=== PATIENT | male | born 1985 | race Hispanic/Latino ===

== ENCOUNTER 2024-06-25 17:30 | Emergency (ER) | payer SELFPAY ==
[2024-06-25 17:45] VITALS: BP 154/93; PULSE 107; RESP 18; TEMP 37.1; O2SAT 96
--- NOTE | 2024-06-25 17:45 | ED_ITS ---
HPI - General Adult General Stated complaint: High B/P Time Seen by Provider: 06/25/24 17:49 Source: patient Mode of arrival: ambulatory Limitations: language barrier (Skin [employer]itter used) History of Present Illness HPI narrative: 38-year-old male presents with concern for high blood pressure. Reports he took his blood pressure at [employer] today and it was high. He reports he sometimes feels briefly dizzy when he stands up. He denies headache, vision changes, chest pain, shortness of breath MD complaint: High blood pressure Review of Systems Review of Systems: CONSTITUTIONAL: Denies malaise, chills, sweats, or fever. EYES: Denies visual changes CARDIOVASCULAR: Denies chest pain, palpitations, or edema. RESPIRATORY: Denies cough or dyspnea. NEUROLOGIC: Denies numbness, weakness, or headache. All systems reviewed & are unremarkable except as noted in HPI and below PMFSH Comments At time of signature, agree with nursing past medical, surgical, social and family history. There is no relevant family history pertinent to the presenting complaint Exam Narrative: GENERAL: Well-appearing, well-nourished, and in no acute distress. HEAD: Normocephalic, atraumatic. EYES: PERRLA, sclera clear, and EOMI. No nystagmus. ENT: Nares clear. Mucous membranes moist. No epistaxis NECK: Supple. CHEST: No respiratory distress. Clear to auscultation. No bony deformities, no asymmetry. Speaks in full sentences. HEART: Regular rate and rhythm. No murmur heard. Normal peripheral pulses. SKIN: Warm, dry, no visible rash. NEURO: Alert and oriented x3. PSYCH: Normal mood and affect Course Course Emergency Course: Orthostatic blood pressures measured, unremarkable. Patient was given education on ways to lower blood pressure with lifestyle. Patient was given referral for primary care to follow-up for blood pressure medication Patient is aware of diagnosis, understands and agrees to treatment plan. Anticipatory guidance given. Patient agrees to follow-up as directed and is aware of reasons to seek care at the emergency department. Portions of this record may have been created with voice recognition software Level of Care: Express Care Visit Vital Signs Vital signs: Reviewed. Medical Decision Making MDM Narrative Medical decision making narrative: The patient was evaluated by myself in the emergency department. History is obtained from patient who is an independent historian and physical exam was per formed.? Available medical records were reviewed at this time. ? Exam findings and imaging show no acute concerns or changes; patient is non- toxic appearing and is in no distress. Patient is appropriate for outpatient treatment and follow-up. ? I have evaluated and discussed social determinants of health with the patient that could potentially impact subsequent diagnosis and treatment plans. ? Differential diagnosis and treatment plan were discussed with the patient. Patient agrees with discussion and after shared medical decision making agrees with plan of care. All questions were answered to the patient's satisfaction. Critical Care Time Critical Care Time Critical Care Time: No Discharge Plan Discharge Clinical Impression: High blood pressure Patient Disposition: Home, Self-Care Condition: Stable Instructions: Low-Sodium Diet (ED), Hypertension (ED) Additional Instructions: 1) Please follow-up with your primary care doctor in the next 1-2 days. 2) If you have any worsening of symptoms or any other urgent concerns please go to the ER. 3) your blood pressure will decrease if you stop smoking cigarettes. Eating a low-salt diet can also decrease her blood pressure. 4) Please read and follow information included in discharge instructions. 1) Albert un seguimiento con hdz m?dico de atenci?n primaria en los pr?ximos 1 o 2 d?as. 2) Si tiene alg?n empeoramiento de los s?ntomas o cualquier otra inquietud urgente, vaya a la juliette de emergencias. 3) hdz presi?n arterial disminuir? si anders de fumar cigarrillos. Llevar keisha dieta baja en panfilo tambi?n puede disminuir hdz presi?n arterial. 4) Tarah y siga la informaci?n incluida en las instrucciones de mason. Patient Language: Occitan Follow-up/Referrals: PHYSICIAN,LEADERSHIP DEVELOPMENT CONSULTANT [Primary Care Provider] - Josef Echeverria MD [Physician] - Time of Disposition: 18:12
[2024-06-25 18:10] VITALS: BP 152/79; PULSE 99
[2024-06-25 18:15] VITALS: BP 150/89
[2024-06-25 18:20] VITALS: BP 150/90; PULSE 107
== END 2024-06-25 18:25 | disposition home or self-care (01) ==
PROVIDERS: Emergency Provider Nurse Practitioner
DX: R03.0 Elevated blood-pressure reading, without diagnosis of hypertension (principal)
CPT/HCPCS: 99202; G0463